=== PATIENT | female | born 1990 | race Caucasian/White ===

== ENCOUNTER 2016-09-26 14:44 | Emergency (ER) | payer SELFPAY ==
[~2016-09-26] VITALS: Ht 162.6 cm; Wt 67.0 kg
[2016-09-26 14:45] VITALS: Ht 162.6 cm; Wt 67.0 kg
[2016-09-26] MEDS ORDERED: OSLT75C PO (16:23)
[2016-09-26] MEDS ORDERED: ONDA4TAB14 PO (16:24)
[2016-09-26] MEDS ORDERED: IBUP-1542 PO (16:24)
--- NOTE | 2016-09-26 16:37 | ERD ---
ER Documentation Chief Complaint Date/Time DATE: 09/26/16 TIME: 16:30 Chief Complaint FEVER, CHILLS, VOMITING, BODY ACHES HPI Patient is a 26-year-old female who presents to the emergency department with numerous concerns including fever, chills, vomiting and body aches 1 day. Patient states that her fevers started this morning, patient reports tactile fevers. Patient took Tylenol around 12 PM today which she states did alleviate her temperature. She also states that she had 3 episodes of nonbloody, nonbilious vomiting. Last episode was was at 2 PM today. Patient is able to tolerate by mouth fluids and has a normal appetite. Patient also reports headache which started this morning. Patient reports gradual onset. Patient denies any photophobia, phonophobia, blurry vision or loss of consciousness. She states that her pain is a 7 out of 10. Patient also complaint of generalized body aches. Patient denies any pain, ear pain, rhinorrhea, abdominal pain, diarrhea. She admits to a dry cough. Patient's last menstrual period was on 09/03/16. Patient reports sick contacts, . No recent travel. ROS All systems reviewed and are negative except as per history of present illness. Medications Home Meds Active Scripts Ibuprofen* (Motrin*) 600 Mg Tab, 600 MG PO Q6, #15 TAB Prov:TENISHA TERESA PA-C 09/26/16 Ondansetron (Ondansetron Odt) 4 Mg Tab.rapdis, 4 MG PO Q6H Y for NAUSEA AND/OR VOMITING, #10 TAB Prov:TENISHA TERESA PA-C 09/26/16 Oseltamivir Phosphate* (Tamiflu*) 75 Mg Capsule, 75 MG PO BID for 5 Days, CAP Prov:TENISHA TERESA PA-C 09/26/16 Allergies Allergies: Coded Allergies: No Known Allergy (Unverified , 09/26/16) PMhx/Soc Medical and Surgical Hx: pt denies Medical Hx History of Surgery: Yes () Anesthesia Reaction: No Hx Neurological Disorder: No Hx Respiratory Disorders: No Hx Cardiac Disorders: No Hx Psychiatric Problems: No Hx Miscellaneous Medical Probl: No Hx Alcohol Use: Yes (socially) Hx Substance Use: No Hx Tobacco Use: No Smoking Status: Never smoker FmHx Family History: No diabetes Physical Exam Vitals Vital Signs Date Time Temp Pulse Resp B/P Pulse Ox O2 Delivery O2 Flow Rate FiO2 09/26/16 14:45 99.1 105 18 104/56 98 Physical Exam GENERAL: Well-developed, well-nourished female. Appears in no acute distress. HEAD: Normocephalic, atraumatic. EYES: Pupils are equally reactive bilaterally. EOMs grossly intact. No conjunctival erythema. ENT: External ear without any masses or tenderness. Auditory canals clear bilaterally. TM visualized bilaterally, non-erythematous, non-bulging. Nasal septum midline. Nasal mucosa pink with no discharge. Turbinates normal. Oropharynx is pink without any tonsillar erythema or exudates. Sinuses non- tender to palpation. NECK: Supple. No lymphadenopathy or thyromegaly. No meningismus. Normal ROM of neck. LUNG: Clear to auscultation bilaterally. No rhonchi, wheezing, rales or coarse breath sounds. HEART: Regular rate and rhythm. No murmurs, rubs or gallops. BACK: No midline tenderness. EXTREMITIES: Equal pulses bilaterally. No peripheral clubbing, cyanosis or edema. No unilateral leg swelling. NEUROLOGIC: Alert and oriented. Moving all four extremities without any difficulty. Normal speech. Steady gait. Negative Brudzinski sign. Negative Kernig sign. SKIN: Normal color. Warm and dry. No rashes or lesions. Procedures/MDM MEDICAL DECISION MAKING: This is a 26-year-old female who presents with tactile fever, chills, vomiting and generalized body aches 1 day. Patient reported sick contacts of . Vital signs were reviewed. Patient was afebrile. Patient was not hypoxic. ENT exam was normal. Cardiac exam was normal. Lung exam was normal. Given these findings, the patients presentation is most consistent with influenza. I have a Low suspicion for the patient requiring IV rehydration therapy for inpatient management given her the patient is tolerating by mouth fluids. Low suspicion for intracranial hemorrhage or intracranial mass given that the patient described gradual onset of headache, no LOC. PRESCRIPTIONS: Ibuprofen, Zofran, Tamiflu DISCHARGE: At this time, patient is stable for discharge and outpatient management. Patient was advised to hydrate well. Supportive therapies such as OTC throat lozenges, salt water gurgles, popsicles and jello discussed. I have instructed the patient to follow-up with his/her primary care physician in 1-2 days. I have instructed the patient to promptly return to the ER for any new or worsening symptoms including increased pain, swelling, fever, nausea, vomiting, weakness or difficulty breathing. The patient and/or family expressed understanding of and agreement with this plan. All questions were answered. Home care instructions were provided. Departure Diagnosis: Primary Impression: Influenza Additional Impression: Nausea and vomiting Vomiting type: unspecified Vomiting Intractability: unspecified Qualified Code: R11.2 - Nausea and vomiting, intractability of vomiting not specified, unspecified vomiting type Condition: Stable Patient Instructions: Nausea and Vomiting-Adult, Influenza (Adult) Referrals: [facility], [facility] YOU HAVE RECEIVED A MEDICAL SCREENING EXAM AND THE RESULTS INDICATE THAT YOU DO NOT HAVE A CONDITION THAT REQUIRES URGENT TREATMENT IN THE EMERGENCY DEPARTMENT. FURTHER EVALUATION AND TREATMENT OF YOUR CONDITION CAN WAIT UNTIL YOU ARE SEEN IN YOUR DOCTORS OFFICE WITHIN THE NEXT 1-2 DAYS. IT IS YOUR RESPONSIBILITY TO MAKE AN APPOINTMENT FOR FOLOW-UP CARE. IF YOU HAVE A PRIMARY DOCTOR --you should call your primary doctor and schedule an appointment IF YOU DO NOT HAVE A PRIMARY DOCTOR YOU CAN CALL OUR PHYSICIAN REFERRAL HOTLINE AT IF YOU CAN NOT AFFORD TO SEE A PHYSICIAN YOU CAN CHOSE FROM THE FOLLOWING [facility] [address] [facility]. [facility] [address] [facility] [facility] [address] [facility] [facility] [address] [facility] [facility] [facility] [address] [facility]. [facility]. [address] [facility]. [facility] YOU HAVE RECEIVED A MEDICAL SCREENING EXAM AND THE RESULTS INDICATE THAT YOU DO NOT HAVE A CONDITION THAT REQUIRES URGENT TREATMENT IN THE EMERGENCY DEPARTMENT. FURTHER EVALUATION AND TREATMENT OF YOUR CONDITION CAN WAIT UNTIL YOU ARE SEEN IN YOUR DOCTORS OFFICE WITHIN THE NEXT 1-2 DAYS. IT IS YOUR RESPONSIBILITY TO MAKE AN APPOINTMENT FOR FOLOW-UP CARE. IF YOU HAVE A PRIMARY DOCTOR --you should call your primary doctor and schedule and appointment IF YOU DO NOT HAVE A PRIMARY DOCTOR YOU CAN CALL OUR PHYSICIAN REFERRAL HOTLINE AT . IF YOU CAN NOT AFFORD TO SEE A PHYSICIAN YOU CAN CHOSE FROM THE FOLLOWING [facility] INSTITUTIONS: [facility] [address] [place] [address] [facility] [address] [place] [address] [facility] [address] [place] [address] Additional Instructions: Llame al doctor MAANA y lyle neelima AB PARA DENTRO DE 1-2 LIAO.Dgale a la secretaria que nosotros le instruimos hacer esta ab.Avise o llame si anderson condicin se empeora antes de la ab. Regresa aqui si peor o no mejor. TENISHA TERESA PA-C Sep 26, 2016 16:37
== END 2016-09-26 16:37 | disposition home or self-care (01) ==
LOC: E/R 14:44
DX: J11.1 Influenza due to unidentified influenza virus with other respiratory manifestations (principal); R11.2 Nausea with vomiting, unspecified
CPT/HCPCS: 99284

== ENCOUNTER 2016-10-12 14:41 | Emergency (ER) | END 2016-10-12 18:12 | disposition home or self-care (01) | DX: R51 Headache (principal) | CPT/HCPCS: 80053; 85025; 93005; J1200; J1885; J2765 ==

== ENCOUNTER 2018-04-04 13:23 | Outpatient (CLI) | END 2018-04-04 16:20 | disposition home or self-care (01) ==

== ENCOUNTER 2018-05-01 20:12 | Outpatient (CLI) | END 2018-05-01 23:45 | disposition home or self-care (01) ==

== ENCOUNTER 2018-05-10 10:21 | Inpatient (IN) | END 2018-05-13 14:00 | disposition home or self-care (01) | DRG 766 ==